=== PATIENT | male | born 1975 | race Caucasian/White ===

== ENCOUNTER 2024-01-07 07:11 | Day surgery (SDC) | payer BC ==
[~2024-01-07] VITALS: Ht 172.7 cm; Wt 102.0 kg
[~2024-01-07 07:11] MED LIST: LIDOCAINE 2% 100MG/5ML SDV (FOR ANES.) As Ordered ONE; propofoL 200 MG/20 ML VIAL As Ordered ONE
[2024-01-07] MEDS: NS 1,000 ML IV ONE (07:29)
[2024-01-07] MEDS ORDERED: GLYCOPYRROLATE INJ 0.2 MG/ML 2 ML VIAL As Ordered ONE (08:51)
[2024-01-07 09:06] VITALS: TEMP 97.2
[2024-01-07 09:21] VITALS: BP 126/70; O2SAT 99
== END 2024-01-07 09:24 | disposition home or self-care (01) ==
LOC: M OPP 07:11
PROVIDERS: ATTEND Internal Medicine Gastroenterology
DX: Z12.11 Encounter for screening for malignant neoplasm of colon (principal); D12.4 Benign neoplasm of descending colon; K64.8 Other hemorrhoids; K57.30 Diverticulosis of large intestine without perforation or abscess without bleeding; Z98.84 Bariatric surgery status